=== PATIENT | male | born 1970 | race Caucasian/White ===

== ENCOUNTER → 2019-08-03 15:10 | Outpatient (CLI) | payer OTHER, SELFPAY ==
[2019-08-03 15:33] LABS: Basophils % 0.4 % (0.1-2.0); Eosinophils # 0.2 K/mm3 (0.0-0.4); Eosinophils % 2.2 % (0.1-12.0); Hematocrit 46.9 % (42.0-52.0); Hemoglobin 15.5 g/dL (14.1-18.0); Lymphocytes # 3.8 K/mm3 (0.7-4.5); Lymphocytes % 39.7 % (10-50); Mean Corpuscular Hemoglobin 31.3 pg (27.0-31.2); Mean Corpuscular Volume 94.8 fl (80-94); Mean Platelet Volume 9.4 fl (7.4-10.4); Monocytes # 0.4 K/mm3 (0.1-1.0); Monocytes % 3.7 % (1.7-9.3); Neutrophils # 5.2 K/mm3 (1.8-7.8); Neutrophils % 53.9 % (37.0-80.0); Platelet Count 280 K/mm3 (142-424); Red Blood Count 4.95 M/mm3 (4.60-6.20); Red Cell Distribution Width 12.9 % (11.5-17.5); White Blood Count 9.6 K/mm3 (4.8-10.8)
[2019-08-03 16:34] LABS: Chloride 105 mmol/L (98-107); Potassium 4.2 mmoL/L (3.5-5.1); Sodium 139 mmol/L (136-145)
[2019-08-03 16:36] LABS: Alanine Aminotransferase 34 U/L (12-78); Aspartate Amino Transferase 25 U/L (17-59); Blood Urea Nitrogen 16 mg/dl (9-20); Estimated Glomerular Filt Rate 89 ml/min (>60); GFR (African American) 108 ML/MIN (>60)
[2019-08-03 16:37] LABS: Albumin Level 4.2 g/dl (3.5-5.0); Albumin/Globulin Ratio 1.5 (1.1-1.8); Alkaline Phosphatase 68 U/L (38-126); Anion Gap 16.2 mEq/L (5-15); Bilirubin,Total 0.5 mg/dl (0.2-1.3); Calcium 9.8 mg/dl (8.4-10.2); Carbon Dioxide 22 mmol/L (22.0-30.0); Chol/HDL Ratio 3.9 (1-3.5); Cholesterol 150 mg/dl (140-200); Globulin 2.8 g/dL (1.3-3.2); Glucose 111 mg/dl (74-100); HDL Cholesterol 38 mg/dl (40-60); Triglycerides 273 mg/dl (30-150); VLDL Cholesterol 55 mg/dL (0-40)
[2019-08-03 16:48] LABS: Direct LDL Cholesterol 50.66 mg/dL (100-129)
[2019-08-03 16:54] LABS: T4 (Thyroxine) 7.7 ug/dl (5.53-11.0)
[2019-08-03 17:08] LABS: Thyroid Stimulating Hormone 1.71 uIU/mL (0.465-4.68)
[2019-08-05 07:26] LABS: Vitamin D 25 Hydroxy 24.9 ng/mL (30.0-100.0)
== END ==
PROVIDERS: Visit Provider Physician Assistant
DX: R10.9 Unspecified abdominal pain (principal); E55.9 Vitamin D deficiency, unspecified
CPT/HCPCS: 80053; 80061; 82652; 84436; 84443; 85025

== ENCOUNTER → 2019-08-07 09:37 | Outpatient (CLI) | payer OTHER, SELFPAY ==
--- NOTE | 2019-08-07 09:37 | CT_ITS ---
PROCEDURE: CT ABDOMEN PELVIS WO CON CLINICAL INDICATION: flank pain/hematuria Right flank pain with hematuria COMPARISON: No exams were available for comparison TECHNIQUE: Axial images obtained with sagittal and coronal reformats. All CT scans at the facility use one or more dose reduction, viz: automated exposure control, ma/kV adjustment per patient size (including targeted exams where dose is matched to indication, i.e. head), or iterative reconstruction technique. FINDINGS: LOWER THORAX: No acute finding ABDOMEN & PELVIS: The liver, spleen, adrenal glands, and pancreas have an unremarkable appearance. There are few small peripancreatic and celiac lymph nodes nonspecific. There are scattered punctate bilateral renal calculi measuring up to 2 mm in the upper pole in both right and left kidney. No hydronephrosis. No ureteral calculi. There is a small exophytic density projecting off the lower pole of the left kidney medially at 1 cm and may be due to small cyst. No evidence of appendicitis or diverticulitis. No intestinal obstruction or free air. There is a small umbilical hernia which contains fat. No pelvic mass or abnormal fluid collection. There some coarse central prostate calcifications. Urinary bladder has an unremarkable appearance. IMPRESSION: 1. Bilateral nephrolithiasis. No ureteral calculus or hydronephrosis. 2. Other nonacute findings as described above Dictated by: Tristan Rodriguez MD 08/07/2019 11:00 Electronically signed by Tristan Rodriguez MD in [facility] 08/07/2019 11:00
== END ==
PROVIDERS: PCP Physician Assistant; Visit Provider Physician Assistant
DX: R10.9 Unspecified abdominal pain (principal); R31.9 Hematuria, unspecified
CPT/HCPCS: 74176

== ENCOUNTER → 2020-08-02 14:12 | Outpatient (CLI) | payer OTHER, SELFPAY ==
[2020-08-02 14:21] LABS: Basophils % 0.5 % (0.1-2.0); Eosinophils # 0.1 K/mm3 (0.0-0.4); Eosinophils % 1.4 % (0.1-12.0); Hematocrit 49.3 % (42.0-52.0); Hemoglobin 15.9 g/dL (14.1-18.0); Lymphocytes # 2.8 K/mm3 (0.7-4.5); Mean Corpuscular HGB Conc 32.2 g/dL (31.8-35.4); Mean Corpuscular Volume 96.1 fl (80-94); Mean Platelet Volume 9.3 fl (7.4-10.4); Monocytes # 0.5 K/mm3 (0.1-1.0); Monocytes % 5.7 % (1.7-9.3); Neutrophils # 5.2 K/mm3 (1.8-7.8); Neutrophils % 60.4 % (37.0-80.0); Platelet Count 226 K/mm3 (142-424); Red Blood Count 5.13 M/mm3 (4.60-6.20); Red Cell Distribution Width 13.4 % (11.5-17.5); White Blood Count 8.6 K/mm3 (4.8-10.8)
[2020-08-02 14:26] LABS: Alanine Aminotransferase 47 U/L (12-78); Albumin Level 4.2 g/dl (3.5-5.0); Albumin/Globulin Ratio 1.6 (1.1-1.8); Alkaline Phosphatase 75 U/L (38-126); Amylase 47 U/L (30-110); Anion Gap 13.3 mEq/L (5-15); Aspartate Amino Transferase 35 U/L (17-59); Bilirubin,Total 0.9 mg/dl (0.2-1.3); Blood Urea Nitrogen 13 mg/dl (9-20); Carbon Dioxide 23 mmol/L (22.0-30.0); Chloride 108 mmol/L (98-107); Chol/HDL Ratio 4.2 (1-3.5); Cholesterol 131 mg/dl (140-200); Estimated Glomerular Filt Rate 89 ml/min (>60); GFR (African American) 107 ML/MIN (>60); Globulin 2.7 g/dL (1.3-3.2); Glucose 99 mg/dl (74-100); HDL Cholesterol 31 mg/dl (40-60); Lipase 181 U/L (23-300); Potassium 4.3 mmoL/L (3.5-5.1); Sodium 140 mmol/L (136-145); Total Protein,Serum 6.9 g/dl (6.3-8.2); Triglycerides 159 mg/dl (30-150); VLDL Cholesterol 32 mg/dL (0-40)
[2020-08-02 14:37] LABS: Direct LDL Cholesterol 45.67 mg/dL (100-129)
[2020-08-02 14:57] LABS: Prostate Specific Ag Screen 0.5 ng/ml (0.0-4.0); Thyroid Stimulating Hormone 1.53 uIU/mL (0.465-4.68)
== END ==
PROVIDERS: Visit Provider Emergency Medicine
DX: R10.11 Right upper quadrant pain (principal); R11.0 Nausea; Z12.5 Encounter for screening for malignant neoplasm of prostate
CPT/HCPCS: 80053; 80061; 82150; 83690; 84439; 84443; 85025; G0103

== ENCOUNTER → 2020-08-13 07:47 | Outpatient (CLI) | payer OTHER, SELFPAY ==
--- NOTE | 2020-08-13 07:50 | US_ITS ---
PROCEDURE: US GALLBLADDER CLINICAL INDICATION: abdominal pain COMPARISON: No exams were available for comparison FINDINGS: Pancreas: Unremarkable/Not well seen Liver: Unremarkable. There is appropriate direction of blood flow within a non dilated portal vein. Right kidney: Unremarkable appearing. No hydronephrosis. Gallbladder: No stones are evident. There is no gallbladder wall thickening. Common duct is normal in diameter. IMPRESSION: Negative gallbladder ultrasound. No stones evident. Dictated by: Tristan Rodriguez MD 08/13/2020 16:54 Tristan Rodriguez MD in [facility] 08/13/2020 16:54
== END ==
PROVIDERS: PCP Emergency Medicine; Visit Provider Emergency Medicine
DX: R10.9 Unspecified abdominal pain (principal)
CPT/HCPCS: 76705

== ENCOUNTER → 2022-01-21 16:44 | Outpatient (CLI) | payer BC, OTHER, SELFPAY ==
[2022-01-21 14:40] LABS: Basophils # 0.2 K/mm3 (0-0.2); Basophils % 2.3 % (0.1-2.0); Eosinophils # 0.1 K/mm3 (0.0-0.4); Eosinophils % 1.6 % (0.1-12.0); Hematocrit 51.6 % (42.0-52.0); Hemoglobin 16.3 g/dL (14.1-18.0); Lymphocytes # 3.2 K/mm3 (0.7-4.5); Lymphocytes % 36.7 % (10-50); Mean Corpuscular HGB Conc 31.6 g/dL (31.8-35.4); Mean Corpuscular Volume 101.4 fl (80-94); Monocytes # 0.5 K/mm3 (0.1-1.0); Monocytes % 6.1 % (1.7-9.3); Neutrophils # 4.6 K/mm3 (1.8-7.8); Neutrophils % 53.3 % (37.0-80.0); Platelet Count 306 K/mm3 (142-424); Red Blood Count 5.09 M/mm3 (4.60-6.20); Red Cell Distribution Width 14.2 % (11.5-17.5); White Blood Count 8.6 K/mm3 (4.8-10.8)
[2022-01-21 15:19] LABS: Alanine Aminotransferase 36 U/L (12-78); Albumin Level 4.6 g/dl (3.5-5.0); Anion Gap 18.9 mEq/L (5-15); Aspartate Amino Transferase 32 U/L (17-59); Bilirubin,Total 0.8 mg/dl (0.2-1.3); Blood Urea Nitrogen 25 mg/dl (9-20); Calcium 9.7 mg/dl (8.4-10.2); Carbon Dioxide 23 mmol/L (22.0-30.0); Chloride 101 mmol/L (98-107); Estimated Glomerular Filt Rate 70 ml/min (>60); GFR (African American) 84 ML/MIN (>60); Glucose 105 mg/dl (74-100); Potassium 4.9 mmoL/L (3.5-5.1); Sodium 138 mmol/L (136-145); Total Protein,Serum 7.8 g/dl (6.3-8.2)
[2022-01-21 15:20] LABS: Albumin/Globulin Ratio 1.4 (1.1-1.8); Alkaline Phosphatase 88 U/L (38-126); Cholesterol 205 mg/dl (140-200); Globulin 3.2 g/dL (1.3-3.2); Triglycerides 198 mg/dl (30-150); VLDL Cholesterol 40 mg/dL (0-40)
[2022-01-21 15:37] LABS: Direct LDL Cholesterol 62.45 mg/dL (100-129)
[2022-01-21 15:51] LABS: Prostate Specific Ag Screen 1.2 ng/ml (0.0-4.0); Thyroid Stimulating Hormone 2.23 uIU/mL (0.465-4.68)
[2022-01-21 16:24] LABS: Chol/HDL Ratio 3.9 (1-3.5); HDL Cholesterol 52 mg/dl (40-60)
== END ==
PROVIDERS: PCP Nurse Practitioner Family; Visit Provider Nurse Practitioner Family
DX: R53.83 Other fatigue (principal); I10 Essential (primary) hypertension; E78.2 Mixed hyperlipidemia; Z12.5 Encounter for screening for malignant neoplasm of prostate
CPT/HCPCS: 80053; 80061; 84443; 85025; G0103

== ENCOUNTER → 2022-01-29 15:58 | Outpatient (CLI) | payer BC, SELFPAY ==
--- NOTE | 2022-01-29 16:04 | MR_ITS ---
PROCEDURE INFORMATION: Exam: MR Left Upper Extremity Joint Without Contrast; Shoulder Exam date and time: 01/29/2022 5:09 PM Age: 52 years old Clinical indication: Pain; Shoulder; Left; Additional info: L shoulder pain. Unable to raise arm above head. Symptoms x years. Weakness in arm TECHNIQUE: Imaging protocol: Magnetic resonance imaging of the Left upper extremity without contrast. Exam focused on the shoulder. COMPARISON: 1. UEAJW/OLT MRI-UP EXT ANY JNT W/O-LT 01/30/2016 2:01 PM 2. CR [id number] [id number] 01/09/2016 1:07 PM FINDINGS: Limitations: Motion artifact. Bones and cartilage: Irregularity of the anterior inferior glenoid suggests the sequelae of remote trauma. Subchondral cystic change in this region is probably related to cartilage damage. Joint spaces: A mild effusion involves the glenohumeral joint. Joint fluid extends through the full thickness rotator cuff tear into the subacromial-subdeltoid bursa. There is mild primary osteoarthritis of the acromioclavicular joint. Prominent bone along the inferior aspect of the acromioclavicular joint produces mass effect on the supraspinatus musculotendinous junction. Glenoid labrum: Fluid between the anterosuperior labrum and the glenoid rim is consistent with a sublabral foramen anatomic variant. The anterior inferior glenoid labrum has a distorted heterogeneous appearance that suggests chronic complex tearing (series 5/images 13-15). Supraspinatus tendon: A full-thickness tear involves the majority of the supraspinatus tendon with a few of the far anterior fibers remaining intact. The tendon is retracted 2.5 cm. Infraspinatus tendon: Intermediate to high-grade partial-thickness articular surface tearing involves the infraspinatus tendon with probable superimposed small full-thickness perforations. Subscapularis tendon: Moderate tendinosis involves the subscapularis tendon. Teres minor tendon: No tear or significant tendinosis involves the teres minor tendon. Tendon of biceps brachii: Severe tendinosis involves the intra-articular portion of the long head of the biceps tendon. Glenohumeral ligaments: Unremarkable as visualized. Muscles: The rotator cuff musculature demonstrates no significant edema or atrophy. Soft tissues: No focal fluid collection or suspicious mass. IMPRESSION: 1. Full-thickness tear involving the majority of the supraspinatus tendon with 2.5 cm retraction and no muscle atrophy. 2. Intermediate to high-grade partial-thickness articular surface tearing involves the infraspinatus tendon with probable superimposed small full-thickness perforations. 3. Probable post-traumatic deformity of the anterior inferior glenoid. 4. Complex tearing of the anterior inferior glenoid labrum. 5. Severe tendinosis of the long head of the biceps tendon. 6. 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
== END ==
PROVIDERS: PCP Emergency Medicine; Visit Provider Nurse Practitioner Family
DX: M25.512 Pain in left shoulder (principal)
CPT/HCPCS: 73221

== ENCOUNTER 2022-12-17 10:54 | Day surgery (SDC) | payer OTHER, SELFPAY ==
[2022-12-17 11:16] VITALS: BMI 31.7
[2022-12-17 11:18] VITALS: BP 157/85; PULSE 79; RESP 18; TEMP 36.6; O2SAT 94
--- NOTE | 2022-12-17 11:39 | P.PNANES_ITS ---
[facility] Disclaimer: The information contained in this section may have been updated after the patient was seen, as this information can be updated by other users. Medical History (Updated 12/17/22 @ 11:18 by Lucrecia Ortiz RN) No significant past medical history Family History (Updated 12/17/22 @ 11:18 by Lucrecia Ortiz RN) Other Family history of cancer Family history of myocardial infarction Social History (Updated 12/17/22 @ 11:18 by Lucrecia Ortiz RN) Smoking Status: Former smoker alcohol intake: current substance use type: denies use current occupational status: employed Travel in the last 8 weeks: None [facility] Anesthesia Checklist Patient Identification Patient Identification: Arm Band Structural Data Admitted From: Home Planned Operative Procedure/s: Colonoscopy Consent for Planned Operative Procedure(s) Verified: Yes Verified Documents: Surgical Consent and History and Physical NPO Status Verified Time NPO: 00:00 Additional verifications Anesthesia Reactions: No Airway Assessment Mallampati Score:: Class II C-Spine Mobility Assessed: Yes TMJ Mobility Assessed: Yes Dentition: Good Dentition Neurological Assessment Level of Consciousness: Awake and Alert Anesthesia Plan Anesthesia Risk discussed: Yes Anesthesia Plan: Verified ASA Class: II Anesthesia Type: MAC
[2022-12-17 11:44] VITALS: O2SAT 94
--- NOTE | 2022-12-17 11:56 | [facility].SCOPE ---
Procedure: Date: 12/17/22 Patient Date of :: 1970 Procedure Performed:: Screening colonoscopy Indications:: Colon cancer screening Performing Provider:: Mejia Mack MD Referring Provider:: Javad Harris Sedation:: Propofol Procedure:: After placing the patient in the left lateral decubitus position, the colonoscopy was gently inserted into the rectum and under direct visualization advanced to the cecum which was identified by transillumination in the right lower quadrant, identification of the ileocecal valve, appendiceal orifice, and cecal strap. Color, texture, mucosa, and anatomy of the colon were carefully examined with the scope. Findings:: Anal canal: normal Rectum: normal Sigmoid colon: normal without polyps or inflammatory changes Descending colon: normal without polyps or inflammatory changes Splenic flexure: normal Transverse colon: normal without polyps or inflammatory changes Hepatic flexure: normal Ascending colon: normal without polyps or inflammatory changes Cecum: normal Terminal ileum: not visualized Impression: Normal colonoscopy Recommendations:: Follow up examination in about TEN years or so, sooner if clinically indicated. Complications:: None Estimated blood obtained (mL): 0 Colonoscopy Component Colonoscopy Component Was a colonoscopy performed during today's procedure?: Yes Recommended follow up colonoscopy of at least 10 years?: Yes
[2022-12-17 12:01] VITALS: BP 111/75; PULSE 84; RESP 17; TEMP 36.8; O2SAT 94
[2022-12-17 12:11] VITALS: BP 113/76; PULSE 81; RESP 17; O2SAT 94
[2022-12-17 12:21] VITALS: BP 107/71; PULSE 80; RESP 17; O2SAT 96
[2022-12-17 12:31] VITALS: BP 126/89; PULSE 87; RESP 17; O2SAT 97
== END 2022-12-17 12:31 | disposition home or self-care (01) ==
PROVIDERS: PCP Emergency Medicine; Visit Provider Internal Medicine Gastroenterology
PROC: 0DJD8ZZ Inspection of Lower Intestinal Tract, Via Natural or Artificial Opening Endoscopic (ICD-10-PCS; CPT 45378; principal; 2022-12-17 12:30)
DX: Z12.11 Encounter for screening for malignant neoplasm of colon (principal)
CPT/HCPCS: 45378